=== PATIENT | male | born 1995 | race Caucasian/White ===

== ENCOUNTER 2016-02-21 18:08 | Emergency (ER) | payer OTHER ==
--- NOTE | 2016-02-21 19:07 | EDDOCDS ---
Physician Documentation [facility] Name: Bimal Donohue Age: 20 yrs Sex: Male : 1995 Arrival Date: 02/21/2016 Time: 18:08 Bed TR8 Private MD: Other - Complete Info On Cds Disposition: 02/21/16 18:50 Discharged to Home/Self Care. Impression: Abrasion of scalp. - Condition is Stable. - Discharge Instructions: Abrasion. - Medication Reconciliation, Local Pharmacy Hours form. - Follow up: Emergency Department; When: As needed; Reason: Worsening of conditions. Follow up: Private Physician; When: 2 - 3 days; Reason: Wound/Symptom Recheck, Recheck today's complaints, Continuance of care. - Problem is new. - Symptoms are unchanged. Historical: - Allergies: no known allergies; - PMHx: none; - PSHx: right knee; wisdom teeth removal; - Social history: Smoking status: Patient states was never smoker of tobacco. No barriers to communication noted, The patient speaks fluent Norwegian, Speaks appropriately for age. - Family history: Not pertinent. - : The pt / caregiver states he / she is not on anticoagulants. Home medication list is obtained from the patient. - Exposure Risk Screening:: None identified. Vital Signs: 02/20 18:10 BP 156 / 73; Pulse 77; Resp 18 S; Temp 96.7(T); Pulse Ox 99% on R/A; Weight 83.91 kg / gr2 184.99 lbs (R); Height 71 in. (180.34 cm) (R); Pain 3/10; 18:10 Body Mass Index 25.80 (83.91 kg, 180.34 cm) gr2 [place] Coma Score: 18:12 Eye Response: spontaneous(4). Verbal Response: oriented(5). Motor Response: obeys ead commands(6). Total: 15. Signatures: Angelique Haddad RN RN rs3 Mer Weems RN RN ead Tschudi, Diane, OSMIN PADavid dt4 MTDD
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
--- NOTE | 2016-02-23 20:07 | EDDOCDS ---
Physician Documentation [facility] Name: Bimal Donohue Age: 20 yrs Sex: Male : 1995 Arrival Date: 02/21/2016 Time: 18:08 Bed TR8 Private MD: Other - Complete Info On Cds Disposition: 02/21/16 18:50 Discharged to Home/Self Care. Impression: Abrasion of scalp. - Condition is Stable. - Discharge Instructions: Abrasion. - Medication Reconciliation, Local Pharmacy Hours form. - Follow up: Emergency Department; When: As needed; Reason: Worsening of conditions. Follow up: Private Physician; When: 2 - 3 days; Reason: Wound/Symptom Recheck, Recheck today's complaints, Continuance of care. - Problem is new. - Symptoms are unchanged. Historical: - Allergies: no known allergies; - PMHx: none; - PSHx: right knee; wisdom teeth removal; - Social history: Smoking status: Patient states was never smoker of tobacco. No barriers to communication noted, The patient speaks fluent Omani, Speaks appropriately for age. - Family history: Not pertinent. - : The pt / caregiver states he / she is not on anticoagulants. Home medication list is obtained from the patient. - Exposure Risk Screening:: None identified. Vital Signs: 02/20 18:10 BP 156 / 73; Pulse 77; Resp 18 S; Temp 96.7(T); Pulse Ox 99% on R/A; Weight 83.91 kg / gr2 184.99 lbs (R); Height 71 in. (180.34 cm) (R); Pain 3/10; 18:10 Body Mass Index 25.80 (83.91 kg, 180.34 cm) gr2 [place] Coma Score: 18:12 Eye Response: spontaneous(4). Verbal Response: oriented(5). Motor Response: obeys ead commands(6). Total: 15. MDM: 20:33 [facility] Payment Agreement was scanned into [employer] and attached to record. [facility] 20:33 Financial registration complete. mpb 02/21 01:38 T-Sheet-- Draft Copy was scanned into [employer] and attached to record. hs2 Signatures: Angelique Haddad RN RN rs3 Mer Weems RN RN ead Tschudi, Diane, PA-C PADavid dt4 Hever Hernandez, Reg Reg mpb Mell Maldonado, Reg Reg hs2 The chart was reviewed and I authenticate all verbal orders and agree with the evaluation and treatment provided.Attachments: 02/20 20:33 [facility] Payment Agreement mpb 02/21 01:38 T-Sheet-- Draft Copy hs2 Chart Complete MTDD
--- NOTE | 2016-02-23 20:07 | EDDOCDS ---
Physician Documentation [facility] Name: Bimal Donohue Age: 20 yrs Sex: Male : 1995 Arrival Date: 02/21/2016 Time: 18:08 Bed TR8 Private MD: Other - Complete Info On Cds Disposition: 02/21/16 18:50 Discharged to Home/Self Care. Impression: Abrasion of scalp. - Condition is Stable. - Discharge Instructions: Abrasion. - Medication Reconciliation, Local Pharmacy Hours form. - Follow up: Emergency Department; When: As needed; Reason: Worsening of conditions. Follow up: Private Physician; When: 2 - 3 days; Reason: Wound/Symptom Recheck, Recheck today's complaints, Continuance of care. - Problem is new. - Symptoms are unchanged. Historical: - Allergies: no known allergies; - PMHx: none; - PSHx: right knee; wisdom teeth removal; - Social history: Smoking status: Patient states was never smoker of tobacco. No barriers to communication noted, The patient speaks fluent Scottish, Speaks appropriately for age. - Family history: Not pertinent. - : The pt / caregiver states he / she is not on anticoagulants. Home medication list is obtained from the patient. - Exposure Risk Screening:: None identified. Vital Signs: 02/20 18:10 BP 156 / 73; Pulse 77; Resp 18 S; Temp 96.7(T); Pulse Ox 99% on R/A; Weight 83.91 kg / gr2 184.99 lbs (R); Height 71 in. (180.34 cm) (R); Pain 3/10; 18:10 Body Mass Index 25.80 (83.91 kg, 180.34 cm) gr2 [place] Coma Score: 18:12 Eye Response: spontaneous(4). Verbal Response: oriented(5). Motor Response: obeys ead commands(6). Total: 15. MDM: 20:33 [facility] Payment Agreement was scanned into [employer] and attached to record. [facility] 20:33 Financial registration complete. mpb 02/21 01:38 T-Sheet-- Draft Copy was scanned into [employer] and attached to record. hs2 Signatures: Angelique Haddad RN RN rs3 Mer Weems RN RN ead Tschudi, Diane, PA-C PADavid dt4 Hever Hernandez, Reg Reg mpb Mell Maldonado, Reg Reg hs2 The chart was reviewed and I authenticate all verbal orders and agree with the evaluation and treatment provided.Attachments: 02/20 20:33 [facility] Payment Agreement mpb 02/21 01:38 T-Sheet-- Draft Copy hs2 Chart Complete MTDD
== END 2016-02-21 19:06 | disposition home or self-care (01) ==
LOC: M ED 18:08
DX: S00.01XA Abrasion of scalp, initial encounter (principal); W20.8XXA Other cause of strike by thrown, projected or falling object, initial encounter; Y92.89 Other specified places as the place of occurrence of the external cause; Y93.01 Activity, walking, marching and hiking; Y99.1 Military activity

== ENCOUNTER 2016-04-24 12:38 | Emergency (ER) | payer OTHER ==
[~2016-04-24] VITALS: Ht 180.3 cm; Wt 86.2 kg
[2016-04-24] MEDS ORDERED: IBUP600T26 PO (13:31)
--- NOTE | 2016-04-24 18:09 | REP ---
Right wrist series: Four views. History: Right wrist injury. Pain. Findings: Four views of the right wrist demonstrate normal bones, joints and soft tissues. No evidence of fracture or subluxation is seen. Impression: Negative right wrist views Signed by David Ellington MD 04/24/2016 07:21 P
[2016-04-24 18:30] VITALS: BP 130/85
== END 2016-04-24 18:24 | disposition home or self-care (01) ==
LOC: M ED 14:21
DX: M25.531 Pain in right wrist (principal); R25.1 Tremor, unspecified

== ENCOUNTER 2016-05-30 08:40 | Emergency (ER) | payer OTHER ==
[~2016-05-30] VITALS: Ht 180.3 cm; Wt 90.7 kg
[~2016-05-30 08:40] MED LIST: IBUP600T26 PO
[2016-05-30 09:44] VITALS: BP 142/82
== END 2016-05-30 09:47 | disposition home or self-care (01) ==
LOC: M ED 09:31
DX: F43.0 Acute stress reaction (principal)

== ENCOUNTER 2017-06-13 22:03 | Emergency (ER) | payer OTHER | END 2017-06-14 | disposition home or self-care (01) | LOC: M ED 06-14 | DX: F41.8 Other specified anxiety disorders (principal); S50.812A Abrasion of left forearm, initial encounter; X78.9XXA Intentional self-harm by unspecified sharp object, initial encounter; Y92.89 Other specified places as the place of occurrence of the external cause; F32.9 Major depressive disorder, single episode, unspecified; K21.9 Gastro-esophageal reflux disease without esophagitis; Z79.899 Other long term (current) drug therapy | CPT/HCPCS: 99283 ==